=== PATIENT | female | born 1950 | race Native Hawaiian/Other Pacific Islander ===

== ENCOUNTER 2017-06-03 10:42 | Outpatient (CLI) | payer OTHER | END 2017-06-03 12:15 | disposition home or self-care (01) | LOC: MAMMO 10:42 | DX: Z12.31 Encounter for screening mammogram for malignant neoplasm of breast (principal); Z13.820 Encounter for screening for osteoporosis; M85.88 Other specified disorders of bone density and structure, other site ==

== ENCOUNTER 2019-08-13 14:00 | Outpatient (CLI) | payer OTHER | END 2019-08-13 19:50 | disposition home or self-care (01) | LOC: RAD 14:00 | DX: M25.561 Pain in right knee (principal); M25.562 Pain in left knee ==

== ENCOUNTER 2019-09-03 10:14 | Outpatient (CLI) | payer OTHER | END 2019-09-03 21:30 | disposition home or self-care (01) | LOC: US 10:14 | DX: E78.49 Other hyperlipidemia (principal); E66.9 Obesity, unspecified; R74.8 Abnormal levels of other serum enzymes; R10.11 Right upper quadrant pain ==

== ENCOUNTER 2020-05-09 13:54 | Outpatient (CLI) | payer OTHER | END 2020-05-09 19:11 | disposition home or self-care (01) | LOC: RAD 13:54 | DX: M25.562 Pain in left knee (principal) ==

== ENCOUNTER 2021-01-25 10:46 | Outpatient (CLI) | payer OTHER | END 2021-01-25 23:35 | disposition home or self-care (01) | LOC: MAMMO 10:46 | PROVIDERS: ATTEND Family Medicine | DX: Z12.31 Encounter for screening mammogram for malignant neoplasm of breast (principal); N95.8 Other specified menopausal and perimenopausal disorders; I10 Essential (primary) hypertension; E78.49 Other hyperlipidemia; E66.9 Obesity, unspecified; M19.90 Unspecified osteoarthritis, unspecified site; R74.8 Abnormal levels of other serum enzymes; R82.79 Other abnormal findings on microbiological examination of urine; Z87.898 Personal history of other specified conditions; R89.8 Other abnormal findings in specimens from other organs, systems and tissues ==

== ENCOUNTER 2022-08-08 09:04 | Outpatient (CLI) | payer OTHER ==
[2022-08-08 09:42] LABS: PLATELET COUNT 150 K/uL (152-353)
[2022-08-08 14:42] LABS: POTASSIUM 3.5 mmol/L (3.6-5.2)
== END 2022-08-08 19:23 | disposition home or self-care (01) ==
LOC: LABW 09:04
PROVIDERS: ATTEND Nurse Practitioner Family
DX: I10 Essential (primary) hypertension (principal); Z79.899 Other long term (current) drug therapy; E55.9 Vitamin D deficiency, unspecified
CPT/HCPCS: 36415; 80053; 80061; 82043; 82306; 82570; 83036; 84439; 84443; 85027

== ENCOUNTER 2023-03-14 13:42 | Outpatient (CLI) | payer OTHER | END 2023-03-14 18:52 | disposition home or self-care (01) | LOC: MAMMO 13:42 | PROVIDERS: ATTEND Nurse Practitioner Family | DX: Z12.31 Encounter for screening mammogram for malignant neoplasm of breast (principal); Z13.820 Encounter for screening for osteoporosis; N95.8 Other specified menopausal and perimenopausal disorders ==